=== PATIENT | female | born 2000 | race Caucasian/White ===

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

== ENCOUNTER → 2019-09-29 | Outpatient (REF) | payer BC | LOC: M LAB REF 09:41 | PROVIDERS: ATTEND Physician Assistant Medical | DX: Z11.59 Encounter for screening for other viral diseases (principal) ==

== ENCOUNTER → 2022-02-02 | Outpatient (CLI) | payer BC | LOC: M SLEEP HO 09:25 | PROVIDERS: ATTEND Physician Assistant | DX: R40.0 Somnolence (principal); R06.83 Snoring ==

== ENCOUNTER → 2022-08-06 | Outpatient (REF) | payer BC, OTHER ==
[2022-08-06 19:30] LABS: GC DNA AMPLIFICATION NEGATIVE (NEGATIVE)
== END ==
LOC: M LAB REF 17:04
PROVIDERS: ATTEND Family Medicine
DX: Z11.3 Encounter for screening for infections with a predominantly sexual mode of transmission (principal)